=== PATIENT | male | born 1955 | race Two or more races ===

== ENCOUNTER 2017-05-14 07:00 | Inpatient (IN) | payer OTHER ==
[~2017-05-14] VITALS: Ht 180.3 cm; Wt 106.6 kg
[~2017-05-14 07:00] MED LIST: BENAZEPRIL HCL10 MG ORAL; Dexamethasone 20mg/5ml IVP ONE; ceFAZolin sod 1 GM in NS 55 ML IVPB ONE
[2017-07-09] VITALS (17 sets, daily range): BP systolic 111–140; BP diastolic 65–81
[2017-07-09] MEDS ORDERED: LR 1000ml 1,000 ML IVLG SCH (06:09)
--- NOTE | 2017-07-09 06:14 | Anethesia Preoperative Eval ---
Anesthesia Pre-op PMH/ROS General Date of Evaluation: Jul 09, 2017 Time of Evaluation: 07:16 Anesthesiologist: Darshana ASA Score: ASA 3 Mallampati Score Class I : Soft palate, uvula, fauces, pillars visible Class II: Soft palate, uvula, fauces visible Class III: Soft palate, base of uvula visible Class IV: Only hard plate visible Mallampati Classification: Class II Surgeon: Ana Paula Diagnosis: Back Pain Surgical Procedure: ALIF L4-5, L5-S1, PSF L4-5,L5-S1 Anesthesia History: none Family History: no anesthesia problems Allergies: Coded Allergies: No Known Allergies (Unverified , 05/13/17) Medications: see eMAR Past Medical History Cardiovascular: Reports: HTN Other: obesity - BMI 35 PSxH Narrative: L Knee Arthroscopy Anesthesia Pre-op Phys. Exam Physician Exam Constitutional: NAD Neurologic: CN 2-12 intact Cardiovascular: RRR Respiratory: CTA Gastrointestinal: S/NT/ND Airway Exam Mallampati Score: Class II MO: full ROM: limited Teeth: intact Anesthesia Pre-op A/P Risk Assessment & Plan Assessment: ASA 3 Plan: GA, BIS, Glidescope Status Change Before Surgery: No Pre-Antibiotics Dru Grams Ancef IV Given Within 1 Hr of Incision: Yes Time Given: 07:31 Arturo Gilliland MD Jul 09, 2017 06:14
[2017-07-09] MEDS ORDERED: LORazepam Inj 2mg/ml 1ml IV PRN (06:15)
[2017-07-09] MEDS ORDERED: HYDROcodone/Acetamin 7.5/325 tab ORAL PRN ×2 (06:15→14:30)
[2017-07-09] MEDS ORDERED: Labetalol 5mg/ml 20ml vial IV PRN (06:15)
[2017-07-09] MEDS ORDERED: Midazolam 2mg/2ml Inj IVP PRN (06:15)
[2017-07-09] MEDS ORDERED: Ketorolac 30mg Inj IV PRN ×2 (06:15→14:30)
[2017-07-09] MEDS ORDERED: Ketorolac 60mg Inj IV PRN ×2 (06:15→14:30)
[2017-07-09] MEDS ORDERED: oxyCODONE HCL/Acetaminophen 5/325mg ORAL PRN ×2 (06:15→14:30)
[2017-07-09] MEDS ORDERED: Atropine Inj 1mg/10ml Syr IV PRN (06:15)
[2017-07-09] MEDS ORDERED: fentaNYL 100 mcg/2 mL IV PRN (06:15)
[2017-07-09] MEDS ORDERED: DiphenhydrAMINE 50mg/ml Inj IVP PRN (06:15)
[2017-07-09] MEDS ORDERED: Norco 5mg/325mg tab ORAL PRN ×2 (06:15→14:30)
[2017-07-09] MEDS ORDERED: Surgicel 4in x 8in TOPIC ONE (06:33)
[2017-07-09] MEDS ORDERED: Thrombin 5000 units TOPIC ONE ×2 (06:33→13:43)
[2017-07-09] MEDS ORDERED: Ropivacaine 5mg/ml Vial 30ml INJ ONE (06:34)
[2017-07-09] MEDS ORDERED: Vancomycin 1gm inj IVPB ONE (06:34)
[2017-07-09] MEDS ORDERED: Lidocaine 1% Plain 30 ml INJ ONE ×2 (06:34→07:00)
[2017-07-09] MEDS ORDERED: Bacitracin 50000 Units Vial ONE (06:34)
[2017-07-09] MEDS ORDERED: Lidocaine 1% 10mg/ml/EPI 0.01mg/ml 50ml INJ ONE (06:34)
--- NOTE | 2017-07-09 06:46 | Immediate Post-Op Evaluation ---
Immediate Post-Op Evalulation Immediate Post-Op Evalulation Procedure: ALIF L4-5, L5-S1, PSF L4-5,L5-S1 Date of Evaluation: Jul 09, 2017 Time of Evaluation: 13:54 IV Fluids: 1800 LR Blood Products: 0 Estimated Blood Loss: 100 Urinary Output: 200 Blood Pressure Systolic: 128 Blood Pressure Diastolic: 88 Pulse Rate: 80 Respiratory Rate: 16 O2 Sat by Pulse Oximetry: 98 Temperature (Fahrenheit): 97 Pain Score (1-10): 3 Nausea: No Vomiting: No Complications 0 Patient Status: awake, reacts, patent, extubated, none Hydration Status: adequate Dru Grams Ancef IV Given Within 1 Hr of Incision: Yes Time Given: 07:31 Arturo Gilliland MD Jul 09, 2017 06:46
[2017-07-09] MEDS ORDERED: Dexamethasone 20mg/5ml IVP ONE (07:00)
[2017-07-09] MEDS ORDERED: PCA HYDROmorphone 1mg/ml 30 ML IV PRN (07:00)
[2017-07-09] MEDS ORDERED: Chloraseptic Spray 20mL Bottle ORAL PRN (07:00)
[2017-07-09] MEDS ORDERED: LR 1000ml ONE (07:00)
[2017-07-09] MEDS ORDERED: Propofol 1,000mg/ 100ml btl IV ONE (07:00)
[2017-07-09] MEDS ORDERED: fentaNYL 100 mcg/2 mL IV ONE (07:00)
[2017-07-09] MEDS ORDERED: Glycopyrrolate 0.2mg/ml 1ml Vial ONE (07:00)
[2017-07-09] MEDS ORDERED: NS Irrig 1000ml ONE (07:00)
[2017-07-09] MEDS ORDERED: Acetaminophen (Non formulary) 100 ML IV ONE (07:00)
[2017-07-09] MEDS ORDERED: Sterile Water Irrig 1000ml IRRIG ONE (07:00)
[2017-07-09] MEDS ORDERED: Zemuron 50mg/5ml Inj IV ONE (07:00)
[2017-07-09] MEDS ORDERED: Neostigmine 1mg/ml 10ml Inj ONE ×2 (07:00)
[2017-07-09] MEDS ORDERED: LORazepam 0.5mg tab ORAL PRN (07:00)
[2017-07-09] MEDS ORDERED: Sodium Chloride 10ml vial INJ ONE (07:00)
[2017-07-09] MEDS ORDERED: oxyCODONE 5mg IR tab ORAL PRN ×2 (07:00)
[2017-07-09] MEDS ORDERED: Propofol 200mg/20ml IV ONE (07:00)
[2017-07-09] MEDS ORDERED: Lidocaine 1% MPF 10mg/ml 5ml ONE (07:00)
[2017-07-09] MEDS ORDERED: ceFAZolin sod 1 GM in D5W 55 ML IVPB ONE (07:00)
[2017-07-09] MEDS ORDERED: Heparin 5000 units/ml inj ONE (07:02)
--- NOTE | 2017-07-09 07:21 | Pre-Procedure Note/Attestation ---
Pre-Procedure Note/Attestation Complete Prior to Procedure Planned Procedure: not applicable Procedure Narrative: ALIF L4-5, L5-S1 Pedicle Screw instrumentation / fusion posterior L4=5=S1 Indications for Procedure Pre-Operative Diagnosis: Post trauma back pain, instability Attestation I attest that I discussed the nature of the procedure; its benefits; risks and complications; and alternatives (and the risks and benefits of such alternatives ), prior to the procedure, with the patient (or the patient's legal sales representative printing paper). I attest that, if there was a reasonable possibility of needing a blood transfusion, the patient (or the patient's legal sales representative printing paper) was given the [place] [employer] standardized written summary, pursuant to the Man[place] Blood Safety Act ([place] Health and Safety Code # 1645, as amended). I attest that I re-evaluated the patient just prior to the surgery and that there has been no change in the patient's H&P, except as documented below: LORIE ARNOLD Jul 09, 2017 07:21
[2017-07-09] MEDS ORDERED: Naloxone 0.4mg/ml Inj IVP PRN (11:45)
--- NOTE | 2017-07-09 13:00 | Brief Operative Note ---
Immediate Post Operative Note Operative Note Pre-op Diagnosis: Post trauma back pain, instability Procedure: ALIF L4-5, L5-S1 Body Habitus reconstruction, internal fixation, correction deformity, x ray ssep, bmp microscopic disection Posterior Body Habitus local, ssep, xray, local Surgeon: Anterior: Ana Paula Sharpe Pricing Actuary: Kwasi mendoza Anesthesiologist: Darshana COLUNGA Anesthesia: general Specimen: none Complications: none Condition: stable Fluids: anesthesia Estimated Blood Loss: minimal Drains: none Implant(s) used?: Yes LORIE ARNOLD Jul 09, 2017 13:00
--- NOTE | 2017-07-09 13:26 | 48 Hour Post Anesthesia Eval ---
Post Anesthesia Evaluation Procedure: ALIF L4-5, L5-S1, PSF L4-5,L5-S1 Date of Evaluation: Jul 11, 2017 Time of Evaluation: 09:00 Blood Pressure Systolic: 147 0: 63 Pulse Rate: 82 Respiratory Rate: 17 Temperature (Fahrenheit): 98 O2 Sat by Pulse Oximetry: 99 Airway: patent Nausea: No Vomiting: No Pain Intensity: 0 Hydration Status: adequate Mental Status/LOC: patient returned to baseline Post-Anesthesia Complications: none Follow-up care needed: patient intructions given Brandon Rosales M.D. Jul 09, 2017 13:26
[2017-07-09] MEDS ORDERED: PCA HYDROmorphone 1mg/ml 30 ML IV ONE (14:20)
[2017-07-09] MEDS: PCA HYDROmorphone 1mg/ml 30 ML IV PRN (14:29)
[2017-07-09] MEDS: Hydromorphone 0.5mg/0.5ml inj IVP PRN ×3 (14:34→15:34)
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
[2017-07-09] MEDS: D5 1/2NS 1,000 ML IV SCH ×2 (16:55→23:51)
--- NOTE | 2017-07-09 17:45 | Operative Note - Dictated ---
DATE OF OPERATION: 07/09/2017 ADMITTING/PREOPERATIVE DIAGNOSIS: Posttraumatic discogenic back pain. POSTOPERATIVE DIAGNOSIS: Posttraumatic discogenic back pain. CO-SURGEONS: 1. L5-S1 fusion, Robbie Sharpe M.D., Vascular Surgery. 2. Dragan Goss M.D., assist on exposure. Anterior also Dr. Dragan Goss, orthopedic spine. 3. Posterior, BOONE Mccann. ANESTHESIOLOGIST: Arturo Gilliland M.D. ANESTHESIA: General with intubation. ESTIMATED BLOOD LOSS: 50 mL. COMPLICATIONS: None. POSTOPERATIVE CONDITION: Good/stable. OPERATIVE PROCEDURES: 1. The patient's body habitus is greater than 95th percentile for height both for the anterior and posterior surgeries that are performed separately with change of instrumentation used for the surgeries anterior versus posterior as well as operating tables. 2. Anterior interbody reconstruction fusion with correction of kyphosis to lordosis. 3. L4-L5 and L5-S1 internal fixation. 4. Bone morphogenic protein placement. 5. Posterior pedicle screw instrumentation, bilateral L4, S1. 6. SSEP monitoring. 7. High-powered microscopic dissection. 8. Intraoperative x-rays interpreted by surgeon. 9. Local anesthetic applied by surgeon. DESCRIPTION OF PROCEDURE: The patient was brought to the operating room and in the supine position, general anesthesia with intubation was induced. Intravenous antibiotics and intravenous Decadron were administered 30 minutes prior to incision time. Anterior longitudinal incision through a sterile field was sharply placed through dermis and epidermis. Please see separate dictation by Dr. Sharpe. L5-S1 midline and correct level was identified with needle placed in the disc space and AP and lateral radiographs obtained and interpreted by surgeon under sterile conditions. Annulotomy performed followed with diskectomy to the posterior longitudinal ligament. Denuding of the endplates to bleeding bone. Interpositional grafting with the appropriate lordotic cage Bailey titanium/PEEK containing bone morphogenic protein. Excellent position/alignment. Internal fixation. Attention was turned to the L4-L5 interval. Large anterior osteophytes. Asymmetric right requiring extensive additional exposure time. Resection. Annulotomy followed with diskectomy. Endplate denuded of cartilaginous endplates to bleeding bone. Interpositional grafting with the appropriately dimensioned lordotic cage titanium/PEEK containing bone morphogenic protein. trial utilization and fluoroscopic guidance. Appropriate interbody device placed. Internal fixation undertaken. L4-L5 and L5-S1 intervertebral spacers were incorporated in the fibrin glue. Wound irrigated with antibiotic-containing saline. Closure by Dr. Sharpe, please see his note. Sterile bandage applied. The patient was carefully turned to a new operating table to the prone position. All new instrumentation was utilized to dissect from posterior approach. Lumbodorsal spine was sterilely prepped and draped free in usual sterile fashion. Spinal needles were placed into the subcutaneous tissue and cross-table imaging was obtained under sterile conditions, interpreted by surgeon for incision placement determination. Position of the needles marked. Coleman removed. Longitudinal midline incision sharply placed in the dermis and epidermis. Electrocautery dissection carried through extensive subcutaneous tissue to the level of the lumbodorsal fascia. We will see approach applied on bilateral and lateral aspects through the lumbodorsal fascia and paraspinal muscles. Position confirmed with fluoroscopic guidance and markers. Pedicle screw instrumentation undertaken bilaterally at L4 bilaterally S1 with sequential drilling of the dorsal cortex, probing of the pedicle, tapping, determination of cortical wall integrity. No EMGs at any time. Placement of screws of the appropriate length followed with electrical stimulation to 10 milliamps negative. Wound irrigated with antibiotic-containing saline. Interconnecting rods torqued into position. Re-irrigation undertaken. Facet fusions were undertaken with local bone graft utilization at L4-L5 and L5-S1. HemoSeal applied followed with 1 g vancomycin powder each side (2 g total). Reapproximation of lumbodorsal fascia. Sequential reapproximation of subcutaneous tissue, dermis, and epidermis. Surgical strips applied. Sterile bandage applied. Local anesthetic applied at the dermis/subcutaneous interval on bilateral and lateral aspects of the incision. Sterile bandage applied and maintained in place with tape. The patient was carefully turned from the prone to supine position on the transport bed where he was awakened and extubated in the operating room and transported to postop recovery in good stable condition. Dragan Goss M.D. DR: WOLFGANG JOB#: [id number] CC:
[2017-07-09] MEDS: PCA shift volume MISC SCH (19:21)
[2017-07-09] MEDS: ceFAZolin sod 1 GM in NS 55 ML IVP SCH (21:21)
--- NOTE | 2017-07-09 21:45 | Operative Note - Dictated ---
DATE OF OPERATION: 07/09/2017 VASCULAR SURGEON: Robbie Sharpe M.D. SPINE SURGEON: Dragan Goss M.D. PREOPERATIVE DIAGNOSIS: Degenerative disk disease. POSTOPERATIVE DIAGNOSIS: Degenerative disk disease. PROCEDURES PERFORMED: 1. Anterior retroperitoneal exposure of L4-L5 vertebral interspace. 2. Anterior retroperitoneal exposure of L5-S1 vertebral interspace. INDICATIONS: The patient is a very pleasant gentleman who is in my office prior to surgery and scheduled for anterior fusion L4-L5 and L5-S1. He has a history of deep vein thrombosis. No history of prior surgery. No history of bleeding were described. He has been made aware of the risks of surgery including vascular injury, possible blood transfusion, deep venous thrombosis. DESCRIPTION OF FINDINGS: A low vertical midline incision was used. A left retroperitoneal approach was used. There was no peritoneal or ureteral violation. There was a preoperatively recognize osteophyte on the anterior surface of L4-L5, however, we were able to mobilize the left iliac vessels over this osteophyte without vascular injury. Exposure of L5-S1 was obtained below the iliac bifurcation and exposure of L4-L5 was obtained above the iliac bifurcation. Fluoroscopy used to confirm both levels prior to instrumentation. On completion, the peritoneum and ureter intact. Iliac vessels are intact. There are palpable femoral and pedal pulses. BLOOD LOSS: Less than 50 mL. DESCRIPTION OF PROCEDURE: The patient was taken to the operative room. General anesthesia was used. IV antibiotics were given. The patient's abdomen was prepped and draped. Appropriate time-out procedures were taken. A vertical midline incision was made infraumbilically. The anterior fascia was incised longitudinally in the midline. A plane was identified posterior to the left rectus abdominis and developed posterolaterally towards the patient's left. The peritoneum and uterus mobilized towards the patient's right, exposing the left common iliac artery and vein. Initial dissection was carried on the undersurface of the left common iliac vein and middle sacral artery and vein were ligated with vascular clips and divided, this allowed us to retract the left iliac artery and vein superiorly and laterally exposing the anterior surface of the L5-S1. The Omni retractor set in place. Fluoroscopy was then used to confirm the appropriate level. Then instrumentation was performed at L5-S1, dictated separately. The retractor then repositioned above the iliac bifurcation, overlying lymphatics were ligated with vascular clips. The iliolumbar vein was identified and encircled using a 2-0 silk tie and then triply ligated proximally and distally with vascular clips. The allowed us to retract the left common iliac artery and vein towards the patient's right. There is a large osteophyte found on the anterior surface of L4-L5, mostly in the left side. This was seen preoperatively on CT. The left iliac vessels were carefully mobilized over this and were able to get exposure of the disk space and extending all the way to the right. At this time, fluoroscopy used to confirm the appropriate level and instrumentation was performed at L4-L5 dictated separately. On completion, the retractor was gently removed. The peritoneum and ureter intact. Iliac vessels are intact. Anterior fascia was then closed using #1 PDS in running fashion. Skin and subcutaneous tissue closed with 3-0 Vicryl and 4-0 Monocryl running subcuticular closure technique. Estimated blood loss 50 mL. Complications none. Robbie Sharpe M.D. DR: SYMONE JOB#: [id number] CC: Jack Boggs M.D. ; FAX#: [phone]
[2017-07-09] MEDS ORDERED: ceFAZolin 1gm/50ml Premix 50 ML IV SCH (22:00)
[2017-07-10] VITALS: BP 103/57
[2017-07-10 04:48] VITALS: BP 103/59
[2017-07-10] MEDS: ceFAZolin sod 1 GM in NS 55 ML IVP SCH ×3 (04:57→21:16)
[2017-07-10] MEDS: PCA shift volume MISC SCH ×2 (07:00→19:28)
[2017-07-10 08:00] VITALS: BP 106/62
[2017-07-10] MEDS ORDERED: Chloraseptic Spray 20mL Bottle ORAL ONE (09:00)
[2017-07-10] MEDS: Docusate 100mg cap ORAL SCH ×2 (09:23→17:55)
[2017-07-10] MEDS: D5 1/2NS 1,000 ML IV SCH ×2 (09:24→17:55)
[2017-07-10] MEDS ORDERED: TransDerm Scop 1mg/72HR Patch TDERMAL ONE (10:00)
[2017-07-10] MEDS ORDERED: oxyCODONE 5mg IR tab ORAL PRN (10:00)
[2017-07-10] MEDS: Morphine Sulfate 4mg/ml Inj IM PRN ×2 (11:40→19:14)
[2017-07-10 12:00] VITALS: BP 110/64
[2017-07-10] MEDS ORDERED: Chloraseptic Spray 20mL Bottle ORAL PRN (12:00)
[2017-07-10] MEDS: HYDROmorphone 1mg/ml Carpuject SUBQ PRN (12:50)
[2017-07-10] MEDS: PCA HYDROmorphone 1mg/ml 30 ML IV PRN (12:51)
--- NOTE | 2017-07-10 15:00 | Cardiology Progress Note ---
Assessment/Plan Assessment/Plan nausea and afvomittign responed to scopolamin patch he feel comfortable pain mamangment per dr pierce dvt ppx ambulate awiat resumption of joel fucntion and po intak to allo dc home [id number] Objective Last 24 Hour Vital Signs Date Time Temp Pulse Resp B/P (MAP) Pulse Ox O2 Delivery O2 Flow Rate FiO2 07/10/17 12:10 98.9 07/10/17 12:00 98.9 73 19 110/64 96 07/10/17 08:00 98.9 67 19 106/62 98 07/10/17 04:48 98.4 60 20 103/59 97 07/10/17 03:27 18 07/10/17 00:00 98.4 61 20 103/57 95 07/09/17 23:39 19 07/09/17 20:17 97.9 61 19 117/65 93 07/09/17 19:37 18 07/09/17 18:10 97.8 07/09/17 18:10 97.8 07/09/17 17:15 98.0 88 18 131/80 97 Nasal Cannula 3.0 07/09/17 16:15 18 07/09/17 16:15 97.8 87 18 131/81 97 Nasal Cannula 3.0 07/09/17 16:14 20 07/09/17 15:59 20 07/09/17 15:44 20 07/09/17 15:42 97.6 56 18 111/68 96 Nasal Cannula 3.0 07/09/17 15:41 97.6 57 18 118/75 96 Nasal Cannula 3.0 07/09/17 15:34 62 18 120/72 96 Nasal Cannula 3.0 07/09/17 15:29 63 18 118/70 96 Nasal Cannula 3.0 07/09/17 15:26 97.0 07/09/17 15:15 67 18 118/72 98 Nasal Cannula 3.0 07/09/17 15:15 20 07/09/17 15:00 20 07/09/17 14:58 66 18 120/73 98 Nasal Cannula 3.0 Intake and Output 07/09/17 07/10/17 19:00 07:00 Intake Total 2225 ml 1125 ml Output Total 950 ml 500 ml Balance 1275 ml 625 ml Intake IV Total 2225 ml 1125 ml Output Urine Total 850 ml 500 ml Estimated Blood Loss 100 ml # Voids 1 BESSY MUSE Jul 10, 2017 15:00
[2017-07-10 16:00] VITALS: BP 109/63
--- NOTE | 2017-07-10 17:45 | Progress Note ---
DATE: 07/10/2017 ACUTE PAIN MANAGEMENT PHYSICIAN PROGRESS NOTE. MEDICATIONS: Medication administration record reviewed. Medications include Chloraseptic, Protonix, oxycodone, Zofran, Ativan, Dilaudid, Colace, Benadryl, Catapres, Soma, Mylanta, Fioricet, Tylenol. LABORATORY STUDIES: No interval laboratory studies. OBJECTIVE: VITAL SIGNS: Afebrile, pulse 57, respirations 18, blood pressure 106/62, and oxygen saturation 98%. I spent over sixty minutes in consultation today. I saw the patient at bedside with the nurse RN, Nasiam. I spoke with the hospital pharmacist. The patient has had severe nausea throughout the night. It is unclear if the nausea is due to the surgery or possibly due to the Dilaudid MASK DESIGNER, which he has been using in moderate doses. I spoke with the pharmacy and the nurse to trial the patient on intramuscular dose of Phenergan now. I also will apply scopolamine patch, as the patient denies any glaucoma symptoms. I would recommend to trial the patient on intramuscular morphine injections alternated with the oral oxycodone. If the pain control is adequate on these two agents, then we can hold off on further usage of the MASK DESIGNER Dilaudid, in case Dilaudid is causing nausea. If the patient's pain is inadequately treated using q.3 h. dosing of intramuscular morphine then perhaps subcutaneous Dilaudid usage might have less nausea effects. The patient was trialed on Compazine, which was ineffective. The patient also was trialed on multiple doses of Zofran, which also did not seem to help with the nausea complaints. The patient is having considerable heartburn symptoms as well. I will order a 12-lead EKG. To be certain, the nausea symptoms are not due to ischemic heart disease and will forward this information to gallery or museum curator, Dr. Choi. The patient denies any shortness of breath or chest pain. He already is on Protonix for GI ulcer prophylaxis and I have asked the nurse to dose him with Mylanta as well in case there are any heartburn symptoms. Incentive spirometer is at the bedside for good pulmonary toilet. Sequential compression pneumatic devices have been ordered for DVT prophylaxis. After his anterior approach surgery, the patient still has no bowel sounds. He will continue NPO except for medications until there is better rastafarian of bowel function. The patient will begin ambulating with physical therapy later today. Brandon Varela M.D. DR: Matteo JOB#: [id number] CC:
[2017-07-10 20:00] VITALS: BP 119/69
[2017-07-11 00:05] VITALS: BP 114/65
[2017-07-11] MEDS: D5 1/2NS 1,000 ML IV SCH ×3 (00:08→15:59)
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
[2017-07-11 04:00] VITALS: BP 125/74
[2017-07-11] MEDS: ceFAZolin sod 1 GM in NS 55 ML IVP SCH ×3 (05:01→21:31)
[2017-07-11] MEDS: PCA shift volume MISC SCH (07:00)
[2017-07-11 08:00] VITALS: BP 114/65
[2017-07-11] MEDS: Docusate 100mg cap ORAL SCH ×2 (08:23→17:36)
[2017-07-11 12:00] VITALS: BP 141/72
[2017-07-11] MEDS: HYDROmorphone 1mg/ml Carpuject SUBQ PRN (13:42)
[2017-07-11 16:00] VITALS: BP 142/76
--- NOTE | 2017-07-11 16:19 | Cardiology Progress Note ---
Assessment/Plan Assessment/Plan 1. Obesity. 2. Lumbar spine injury. 3. Nonalcoholic steatohepatitis. 4. Abnormal liver function test, secondary to above. 5. low grade fever watch temp curve foey removed not yet urinated will have staff check pvr will give flomax to hel with urination if unable to do so may need in / out cath if failes to urinate dvt ppx ambulate not yet hat any flatus or bm so is not being allowed to eat lasb in am may need cx if has fever IS use Subjective Cardiovascular: Denies: chest pain, lightheadedness, palpitations Respiratory: Denies: shortness of breath Gastrointestinal/Abdominal: Denies: abdominal pain Genitourinary: Denies: burning Subjective galeano removed not yet urintaed no bm no flatus back pain when tired to walk Objective Last 24 Hour Vital Signs Date Time Temp Pulse Resp B/P (MAP) Pulse Ox O2 Delivery O2 Flow Rate FiO2 07/11/17 12:00 98.3 72 18 141/72 95 Room Air 07/11/17 12:00 18 07/11/17 08:00 98.0 61 18 114/65 91 Room Air 07/11/17 08:00 18 07/11/17 06:06 98.4 07/11/17 05:54 98.4 07/11/17 04:55 100.6 07/11/17 04:06 18 07/11/17 04:00 100.1 71 18 125/74 93 Room Air 07/11/17 00:30 98.5 07/11/17 00:15 100.4 07/11/17 00:05 101.1 75 16 114/65 93 Room Air 07/11/17 00:00 18 07/10/17 21:30 97.4 07/10/17 20:31 100.1 07/10/17 20:00 18 07/10/17 20:00 100.8 73 18 119/69 94 Room Air General Appearance: no apparent distress, alert Neck: supple Cardiovascular: normal rate, regular rhythm Respiratory/Chest: lungs clear, normal breath sounds Abdomen: non tender, soft, hypoactive bowel sounds, other - anter dressign in palce min draingwe on eh loer endof brittany dressing Extremities: no swelling, other - penumoatic stockign in palce Intake and Output 07/10/17 07/11/17 19:00 07:00 Intake Total 2753 ml 1250 ml Output Total 2400 ml 600 ml Balance 353 ml 650 ml Intake IV Total 2753 ml 1250 ml Output Urine Total 2400 ml 600 ml # Voids 3 Microbiology Date/Time Source Procedure Growth Status 07/09/17 06:25 Nasal Nares MRSA Culture - Final NO METHICILLIN RESISTANT STAPH AUREUS... Complete BESSY MUSE Jul 11, 2017 16:19
[2017-07-11] MEDS ORDERED: D5 1/2NS 1000ml IV ONE (16:28)
[2017-07-11] MEDS ORDERED: Tubing IV Secondary IV ONE (16:28)
--- NOTE | 2017-07-11 16:33 | Progress Note ---
DATE: 07/11/2017 ACUTE PAIN MANAGEMENT PHYSICIAN PROGRESS NOTE MEDICATIONS: Medication administration record reviewed. Medications include IV fluids, Colace, Protonix, Dilaudid TILE HELPER, and antibiotics. P.r.n. medications include Benadryl, Dilaudid, Narcan, Zofran, Catapres, Ativan, Soma, Tylenol, Fioricet, morphine, oxycodone, Chloraseptic, Phenergan, Mylanta, and Dilaudid TILE HELPER. LABORATORY STUDIES: No interval laboratory studies. OBJECTIVE: VITAL SIGNS: Intermittent fevers with a T-max of 100.6 three hours ago. Currently, the patient is afebrile. Pulse 71, respirations 18, blood pressure 125/74, and oxygen saturation 93% on room air. I spent over 60 minutes in consultation today. I saw the patient at the bedside. I discussed the case with demand manager, Dr. Choi. Dr. Choi has reviewed the patient's symptoms and did not believe there was any cardiogenic etiology. EKG was performed, which showed normal sinus rhythm, no evidence for acute cardiac ischemia. Yesterday, the patient was having severe nausea. He was unclear of the etiology. It was considered possible the Dilaudid as a culprit. However, after application of the scopolamine patch and dosing the patient with intramuscular Phenergan, the nausea symptoms subsided. The patient has been continuing to use his Dilaudid TILE HELPER unit without any adverse side effects or nausea over the past 12 hours. He used 4 mg over the past nightshift. I would continue the TILE HELPER until lunch time today. After that I would discontinue the TILE HELPER and switch the patient over to p.r.n. medications, which include intramuscular morphine, subcutaneous Dilaudid, and oral oxycodone. All three of these agents have been tolerated well in the past and the p.r.n. morphine and p.r.n. Dilaudid have already been dosed yesterday without adverse side effects and with good analgesic effect. The patient has been ambulating with physical therapy. With his intermittent fevers, I would encourage more aggressive and frequent ambulation along with much more aggressive use of incentive spirometer. Sequential compression pneumatic devices will remain in place for DVT prophylaxis. After the anterior approach surgery, the patient still has not yet passed positive flatus. He does have positive bowel sounds and we will wait for improved and return of better bowel function prior to advancing his diet. He had a Alejandre catheter remains in place and I will defer removal of the Alejandre to the surgical team at this time. The patient already has a supply of oxycodone at home and the patient does have family at the bedside providing good social support. Brandon Varela M.D. DR: DAYRON JOB#: [id number] CC:
[2017-07-11] MEDS: Morphine Sulfate 4mg/ml Inj IM PRN (19:29)
[2017-07-11 20:00] VITALS: BP 143/77
[2017-07-12] MEDS: D5 1/2NS 1,000 ML IV SCH ×5 (00:30→20:00)
[2017-07-12] MEDS: HYDROmorphone 1mg/ml Carpuject SUBQ PRN ×2 (00:31→07:07)
[2017-07-12 01:25] VITALS: BP 133/71
[2017-07-12 04:00] VITALS: BP 136/76
[2017-07-12] MEDS: ceFAZolin sod 1 GM in NS 55 ML IVP SCH ×3 (05:02→20:53)
[2017-07-12 06:33] LABS: BASOPHILS % (AUTO) 0.7 % (0.0-2.0); EOSINOPHILS % (AUTO) 0.5 % (0.0-3.0); HEMATOCRIT 40.8 % (42.0-52.0); HEMOGLOBIN 13.7 G/DL (14.2-18.0); LYMPHOCYTES % (AUTO) 9.5 % (20.0-45.0); MEAN CORPUSCULAR VOLUME 95 FL (80-99); MONOCYTES % (AUTO) 9.6 % (1.0-10.0); NEUTROPHILS % (AUTO) 79.6 % (45.0-75.0); PLATELET COUNT 146 K/UL (150-450); RED BLOOD COUNT 4.32 M/UL (4.70-6.10); RED CELL DISTRIBUTION WIDTH 11.2 % (11.6-14.8); WHITE BLOOD COUNT 14.5 K/UL (4.8-10.8)
[2017-07-12 06:44] LABS: ANION GAP 7 mmol/L (5-15); BLOOD UREA NITROGEN 11 mg/dL (7-18); CALCIUM 8.2 MG/DL (8.5-10.1); CARBON DIOXIDE 28 MMOL/L (21-32); CHLORIDE 102 MMOL/L (98-107); CREATININE 0.8 MG/DL (0.55-1.30); POTASSIUM 4.3 MMOL/L (3.5-5.1); SODIUM 137 MMOL/L (136-145)
[2017-07-12 08:00] VITALS: BP 124/71
[2017-07-12] MEDS: Docusate 100mg cap ORAL SCH ×2 (09:00→18:22)
[2017-07-12 12:00] VITALS: BP 139/73
[2017-07-12 16:00] VITALS: BP 138/80
[2017-07-12] MEDS ORDERED: oxyCODONE 5mg IR tab ORAL PRN (19:15)
[2017-07-12 20:35] VITALS: BP 144/77
--- NOTE | 2017-07-12 20:54 | Cardiology Progress Note ---
Assessment/Plan Assessment/Plan 1. Obesity. 2. Lumbar spine injury. 3. Nonalcoholic steatohepatitis. 4. Abnormal liver function test, secondary to above. 5. low grade fever no fever labs noted dvt ppx ambulate not yet had bm but had flauts clear liquid order by dr santillan dressing clear and dry both ant and post IS use may need cathartic to help bm Subjective ROS Limited/Unobtainable: No Cardiovascular: Denies: chest pain, lightheadedness Respiratory: Denies: shortness of breath Gastrointestinal/Abdominal: Reports: abdominal pain Genitourinary: Denies: burning Subjective walked several time had flatus no bm Objective Last 24 Hour Vital Signs Date Time Temp Pulse Resp B/P (MAP) Pulse Ox O2 Delivery O2 Flow Rate FiO2 07/12/17 20:35 98.0 72 18 144/77 95 07/12/17 16:00 97.9 76 18 138/80 95 Room Air 07/12/17 12:00 98.5 77 18 139/73 94 Room Air 07/12/17 08:00 98.2 68 18 124/71 94 Room Air 07/12/17 04:00 98.5 73 18 136/76 97 Room Air 07/12/17 02:15 97.0 07/12/17 01:25 100.3 74 18 133/71 97 Room Air General Appearance: no apparent distress, alert Neck: supple Cardiovascular: normal rate, regular rhythm Respiratory/Chest: lungs clear Abdomen: non tender, soft, hypoactive bowel sounds Extremities: no swelling Intake and Output 07/11/17 07/12/17 19:00 07:00 Intake Total 680 ml 1500 ml Output Total 920 ml Balance 680 ml 580 ml Intake IV Total 680 ml 1500 ml Output Urine Total 920 ml Laboratory Tests Test 07/12/17 06:15 White Blood Count 14.5 K/UL (4.8-10.8) H Red Blood Count 4.32 M/UL (4.70-6.10) L Hemoglobin 13.7 G/DL (14.2-18.0) L Hematocrit 40.8 % (42.0-52.0) L Mean Corpuscular Volume 95 FL (80-99) Mean Corpuscular Hemoglobin 31.8 PG (27.0-31.0) H Mean Corpuscular Hemoglobin Concent 33.6 G/DL (32.0-36.0) Red Cell Distribution Width 11.2 % (11.6-14.8) L Platelet Count 146 K/UL (150-450) L Mean Platelet Volume 10.7 FL (6.5-10.1) H Neutrophils (%) (Auto) 79.6 % (45.0-75.0) H Lymphocytes (%) (Auto) 9.5 % (20.0-45.0) L Monocytes (%) (Auto) 9.6 % (1.0-10.0) Eosinophils (%) (Auto) 0.5 % (0.0-3.0) Basophils (%) (Auto) 0.7 % (0.0-2.0) Sodium Level 137 MMOL/L (136-145) Potassium Level 4.3 MMOL/L (3.5-5.1) Chloride Level 102 MMOL/L (98-107) Carbon Dioxide Level 28 MMOL/L (21-32) Anion Gap 7 mmol/L (5-15) Blood Urea Nitrogen 11 mg/dL (7-18) Creatinine 0.8 MG/DL (0.55-1.30) Estimat Glomerular Filtration Rate > 60 mL/min (>60) Glucose Level 119 MG/DL (74-106) H Calcium Level 8.2 MG/DL (8.5-10.1) BESSY LYNN Jul 12, 2017 20:54
[2017-07-12] MEDS: oxyCODONE 5mg IR tab ORAL PRN (20:58)
--- NOTE | 2017-07-12 23:00 | Progress Note ---
DATE: 07/12/2017 ACUTE PAIN MANAGEMENT PHYSICIAN PROGRESS NOTE MEDICATIONS: Include IV fluids, Colace, Protonix, Ancef, Benadryl, Dilaudid, Narcan, Zofran, Catapres, Ativan, Soma, Tylenol, Fioricet, morphine, oxycodone, Chloraseptic, Phenergan, and Mylanta. LABORATORY DATA: Laboratory studies from today 07/12/2017 shows white count of 15, hematocrit 41, and platelets 146,000. Sodium 137, potassium 4.3, chloride 103, bicarb 28, BUN 11, creatinine 0.8, glucose 119, and calcium 8.2. OBJECTIVE: VITAL SIGNS: Afebrile, pulse 76, respirations 18, blood pressure 138/80, and oxygen saturation 99% on room air. I spent over 60 minutes in consultation today. I saw the patient at the bedside. I discussed the case with the nurse RN, Aida. The patient did start passing positive flatus and the surgeon, Dr. Goss has advanced the patient to clear liquids at this time. The patient has been tolerating his pain off the DEPLOYMENT MANAGER unit, which I stopped at noon yesterday. He has been using breakthrough doses of subcutaneous Dilaudid and morphine. He does have p.r.n. oral doses of Soma and oxycodone available, which I do recommend. I have lowered the oxycodone dose to 5 mg for mild pain, but I will continue the 10 mg dose for moderate pain. Now, the patient is passing gas. I will start him on b.i.d. Senokot. The Alejandre catheter was removed and the patient has been voiding urine without difficulties. Incentive spirometer is at the bedside to encourage aggressive pulmonary toilet especially with his elevated white count of 14. The patient has been ambulating well with physical therapy and aggressive ambulation will help with DVT prophylaxis as well as to help his surgical recovery. The patient does have a supply of oxycodone already at home for home usage. We will continue the patient's supportive care and await further improvement in his gastrointestinal function after his ALIF surgical procedure. I would hope that after the patient has a bowel movement, he should be able to discharge to home. Because the patient has been started on liquid diet and has been absent of any nausea symptoms for over 24 hours, I will decrease his IV fluids to 50 mL an hour. Brandon Varela M.D. DR: ZEV JOB#: [id number] CC:
[2017-07-13 00:58] VITALS: BP 139/65
[2017-07-13 04:45] VITALS: BP 140/74
[2017-07-13] MEDS: ceFAZolin sod 1 GM in NS 55 ML IVP SCH (06:07)
[2017-07-13 08:00] VITALS: BP 130/75
[2017-07-13] MEDS: Docusate 100mg cap ORAL SCH ×2 (08:35→18:47)
[2017-07-13] MEDS: Sennosides 8.6mg ORAL SCH ×2 (08:35→18:47)
[2017-07-13 12:00] VITALS: BP 133/80
--- NOTE | 2017-07-13 12:59 | Diagnostic Imaging Report ---
Indication: Low back pain, intraoperative Technique: Intraoperative images Comparison: none Findings: Intraoperative imaging demonstrates localizer needle at what is presumably L5-S1. Subsequent images document placement of disc spacers at L4-5 and L5-S1, posterior fusion hardware bridging L4 and S1 Impression: Intraoperative imaging, as described
[2017-07-13 16:00] VITALS: BP 129/84
--- NOTE | 2017-07-13 18:18 | Cardiology Progress Note ---
Assessment/Plan Assessment/Plan 1. Obesity. 2. Lumbar spine injury. 3. Nonalcoholic steatohepatitis. 4. Abnormal liver function test, secondary to above. 5. low grade fever no fever dvt ppx ambulate not yet had bm but had flauts today as well clear liquid order by dr abdul dressing clear and dry both ant and post IS use may need cathartic to help bm home soon if has bm and is able tolerate food Subjective Cardiovascular: Denies: chest pain, irregular heart rate, lightheadedness, palpitations Respiratory: Denies: shortness of breath Gastrointestinal/Abdominal: Denies: abdominal pain Genitourinary: Denies: burning Subjective walked several time had flatus no bm Objective Last 24 Hour Vital Signs Date Time Temp Pulse Resp B/P (MAP) Pulse Ox O2 Delivery O2 Flow Rate FiO2 07/13/17 16:00 97.0 79 20 129/84 99 Room Air 07/13/17 12:00 98.8 88 18 133/80 95 Room Air 07/13/17 08:00 97.9 84 18 130/75 94 Room Air 07/13/17 04:45 98.3 80 18 140/74 95 07/13/17 00:59 Room Air 07/13/17 00:58 97.7 80 20 139/65 95 07/12/17 20:36 Room Air 07/12/17 20:35 98.0 72 18 144/77 95 General Appearance: no apparent distress, alert Neck: supple Cardiovascular: normal rate, regular rhythm Respiratory/Chest: lungs clear, normal breath sounds Abdomen: normal bowel sounds, non tender, soft Extremities: non-tender, no swelling Intake and Output 07/12/17 07/13/17 19:00 07:00 Intake Total 915 ml Balance 915 ml Intake Oral 360 ml IV Total 555 ml # Voids 4 BESSY MUSE Jul 13, 2017 18:18
[2017-07-13] MEDS ORDERED: oxyCODONE 5mg IR tab ORAL ONE (19:30)
[2017-07-13 20:00] VITALS: BP 148/75
[2017-07-14 00:55] VITALS: BP 141/69
[2017-07-14 04:31] VITALS: BP 122/68
[2017-07-14] MEDS: oxyCODONE 5mg IR tab ORAL PRN ×2 (06:53→16:23)
[2017-07-14] MEDS: Docusate 100mg cap ORAL SCH ×2 (08:46→17:21)
[2017-07-14] MEDS: Sennosides 8.6mg ORAL SCH (08:47)
[2017-07-14 08:55] VITALS: BP 116/66
[2017-07-14] MEDS: Magnesium Citrate Liq Btl ORAL SCH ×2 (11:47→17:22)
[2017-07-14 12:00] VITALS: BP 120/75
[2017-07-14 16:00] VITALS: BP 111/61
--- NOTE | 2017-07-14 17:00 | Progress Note ---
DATE: 07/14/2017 ACUTE PAIN MANAGEMENT PHYSICIAN PROGRESS NOTE MEDICATIONS: Medication administration record reviewed. Medications include Colace, Protonix, and Senokot. p.r.n. medications include Benadryl, Dilaudid, Narcan, Zofran, Catapres, Ativan, Soma, Tylenol, Fioricet, Chloraseptic, Phenergan, Mylanta, and oxycodone. LABORATORY STUDIES: No interval laboratory studies. VITAL SIGNS: Within normal limits, afebrile, pulse 79, respirations 20, blood pressure 120/75, and oxygen saturation 96% on room air. I spent over 60 minutes in consultation today. I saw the patient at bedside after discussion with the nurse RN, Elinor. Overnight, the patient did not have a bowel movement. I started magnesium citrate 100 mL every six hours around the clock until a bowel movement occurs and per surgeon, Dr. Goss, routine protocol postoperatively. The patient was on oral Senokot, which I will discontinue at this time since he will be taking a more aggressive dosing of magnesium citrate. Otherwise, the patient is doing very well. He is passing positive flatus and denies any abdominal bloating symptoms. He is ambulating very well. A front-wheel walker was delivered to the bedside for home usage. The patient is walking aggressively greater than 200 feet and with considerable speed. I did caution the patient not to walk too fast so to avoid slipping and falling. The patient is afebrile and has been compliant using his incentive spirometer. His diet has been advancing well without further nausea symptoms. The patient's pain seems to be well managed using oral oxycodone tablets primarily. I would expect that once the patient has a bowel movement, he will be discharged home with his per Dr. Goss recommendations. The patient should continue using incentive spirometer for good pulmonary toilet. Brandon Varela M.D. DR: BLANCHE JOB#: [id number] CC:
--- NOTE | 2017-07-14 18:03 | Cardiology Progress Note ---
Assessment/Plan Assessment/Plan 1. Obesity. 2. Lumbar spine injury. 3. Nonalcoholic steatohepatitis. 4. Abnormal liver function test, secondary to above. 5. low grade fever no fever dvt ppx ambulate not yet had bm but had flauts regualr diet now IS use got cathartic to help bm home soon if has bm and is able tolerate food Subjective Cardiovascular: Denies: chest pain, lightheadedness, palpitations Respiratory: Denies: shortness of breath, SOB with excertion Gastrointestinal/Abdominal: Reports: other - flatus no bm , Denies: abdominal pain, nausea, vomiting Genitourinary: Denies: burning Subjective walked several time had flatus no bm Objective Last 24 Hour Vital Signs Date Time Temp Pulse Resp B/P (MAP) Pulse Ox O2 Delivery O2 Flow Rate FiO2 07/14/17 16:00 Room Air 07/14/17 16:00 98.9 69 20 111/61 96 07/14/17 13:02 98.9 79 20 96 07/14/17 12:00 98.6 79 20 120/75 96 07/14/17 12:00 Room Air 07/14/17 08:55 98.6 76 20 116/66 96 07/14/17 08:00 Room Air 07/14/17 04:32 Room Air 07/14/17 04:31 98.7 81 20 122/68 97 07/14/17 00:56 Room Air 07/14/17 00:55 97.7 72 21 141/69 97 07/13/17 20:01 Room Air 07/13/17 20:00 97.2 78 20 148/75 96 General Appearance: no apparent distress, alert Neck: supple Cardiovascular: normal rate, regular rhythm Respiratory/Chest: lungs clear, normal breath sounds Abdomen: normal bowel sounds, non tender, soft, other - bs are present Intake and Output 07/13/17 07/14/17 19:00 07:00 Intake Total 600 ml 240 ml Output Total 300 ml Balance 300 ml 240 ml Intake Oral 600 ml 240 ml Output Urine Total 300 ml # Voids 1 5 BESSY MUSE Jul 14, 2017 18:03
[2017-07-14 20:00] VITALS: BP 128/77
[2017-07-15] VITALS: BP 126/76
[2017-07-15] MEDS: Magnesium Citrate Liq Btl ORAL SCH
--- NOTE | 2017-07-15 03:00 | Progress Note ---
DATE: 07/13/2017 ACUTE PAIN MANAGEMENT PHYSICIAN PROGRESS NOTE OBJECTIVE: VITAL SIGNS: Within normal limits. Afebrile. Pulse 88, respirations 18, blood pressure 133/80, and oxygen saturation 95% on room air. LABORATORY STUDIES: Laboratory studies from yesterday morning 07/12/2017 showed white count of 15, hematocrit 41, and platelets 146,000. MEDICATIONS: Medication administration record reviewed. Medications include IV fluids, Colace, Protonix, and Senokot. P.r.n. medications include Benadryl, Dilaudid, Narcan, Zofran, Catapres, Ativan, Soma, Tylenol, Fioricet, Chloraseptic spray, Phenergan, Mylanta, and Roxicodone. I spent over 60 minutes in consultation today. I saw the patient at the bedside with the nurse RN, Aida. The patient continued to advance with his gastrointestinal function. He is passing positive flatus and Dr. Goss authorized the patient to advance his diet. The nausea symptoms have abated, and the patient has been advancing his diet without difficulties. The patient continues to be rather stoic using pain medications. However, he has been alternating with the oral oxycodone at 5 mg and 10 mg dosing, with adequate analgesic effect. The patient does have a good supply already at home with oral pain medications. Since the patient is drinking adequate oral fluids intake, I will Hep-Lock the IV to encourage ambulation and movement in and out of bed. The patient is afebrile as he has been very compliant using the incentive spirometer. I have asked for the patient to receive a front wheel walker for home usage. Dr. Goss has authorized the patient to discharge home after he has a bowel movement, after the anterior approach lumbar spine fusion surgery. With the patient's good clinical symptoms and findings, with normal vital signs, I agree with Dr. Goss for discharge trial home after a bowel movement. The patient will continue advancing his diet as tolerated here in the hospital. He is on Colace and Senokot currently b.i.d. to help with bowel function and denominational to normality. Brandon Varela M.D. DR: DAYRON JOB#: [id number] CC:
[2017-07-15] MEDS: oxyCODONE 5mg IR tab ORAL PRN (03:21)
[2017-07-15 04:00] VITALS: BP 113/68
[2017-07-15] MEDS: Docusate 100mg cap ORAL SCH (08:27)
[2017-07-15 09:00] VITALS: BP 123/77
--- NOTE | 2017-07-16 12:56 | Progress Note ---
DATE: 07/15/2017 ACUTE PAIN MANAGEMENT PHYSICIAN PROGRESS NOTE OBJECTIVE: VITAL SIGNS: Afebrile, pulse 73, respirations 18, blood pressure 123/77, and oxygen saturation 97% on room air. LABORATORY STUDIES: No interval laboratory studies. MEDICATIONS: Medication administration record reviewed. Medications include Colace, Protonix, p.r.n. medications include Benadryl, Dilaudid, Narcan, Zofran, Catapres, Ativan, Soma, Tylenol, Fioricet, Chloraseptic spray, Phenergan, Mylanta, and oxycodone. I spent over sixty minutes in consultation today. I discussed the case with the charge nurse, DLIIA Yi along with the Orthopedic floor nurse, Walter. Overnight, the patient did have a bowel movement after several repeated doses of q.6 hour magnesium citrate. The patient is breathing comfortably. Denies any chest pain. The surgical dressings appear clean and dry. Since it has been one week since surgery, I have asked the nursing team to replace the dressing with fresh and dry bandages. The patient will follow up with Dr. Goss in the surgical clinic in approximately 10 days for further wound and surgical followup evaluation. The patient appears neurologically intact. His pain has been adequately controlled using the current analgesic regimen. The patient has about 40 tablets of oxycodone already at home along with a followup prescription in case of any need for refills. The patient states that his pain is adequately controlled at this time. The patient has been compliant using the incentive spirometer, which he will take home to continue good pulmonary toilet. The patient is using his front wheel walker, which he will take home with him. He is ambulating greater than 300 feet and moving in and out of bed without assistance. The patient's will also assist with activities of daily living at home. At this time, I see no contraindication for discharge trial at this time. Brandon Varela M.D. DR: GABO JOB#: [id number] CC:
--- NOTE | 2017-07-16 14:39 | Discharge Summary ---
Discharge Summary Hospital Course Date of Admission Jul 09, 2017 at 05:15 Date of Discharge Jul 15, 2017 at 10:55 Admitting Diagnosis HPI Bess Yang is a 61 year old male who was admitted on Jul 09, 2017 at 05 :15 for Instability Hospital Course [id number] Discharge Discharge Disposition Patient was discharged to Home (01) Discharge Diagnoses: Kamilah Staples NP Jul 16, 2017 14:39
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
--- NOTE | 2017-07-19 13:53 | Cardiology Report ---
APPROVED REPORT EKG Measurement Heart [id number] Sinus rhythm with premature atrial complexes with aberrant conduction Incomplete right bundle branch block Borderline ECG
== END 2017-07-15 10:55 | disposition home or self-care (01) | DRG 460 ==
LOC: SDSOVERFLO 07-09 05:15 → 3E 07-09 15:47 → UNDODISIN 07-13 16:18
PROC: 0SG00A0 Fusion of Lumbar Vertebral Joint with Interbody Fusion Device, Anterior Approach, Anterior Column, Open Approach (ICD-10-PCS; principal; 2017-07-09 07:00)
PROC: 3E0U0GB Introduction of Recombinant Bone Morphogenetic Protein into Joints, Open Approach (ICD-10-PCS; principal; 2017-07-09 07:00)
PROC: 0SB40ZZ Excision of Lumbosacral Disc, Open Approach (ICD-10-PCS; principal; 2017-07-09 07:00)
PROC: 0SG30A0 Fusion of Lumbosacral Joint with Interbody Fusion Device, Anterior Approach, Anterior Column, Open Approach (ICD-10-PCS; principal; 2017-07-09 07:00)
PROC: 0SB20ZZ Excision of Lumbar Vertebral Disc, Open Approach (ICD-10-PCS; principal; 2017-07-09 07:00)
PROC: 4A11X4G Monitoring of Peripheral Nervous Electrical Activity, Intraoperative, External Approach (ICD-10-PCS; principal; 2017-07-09 07:00)
DX: M51.37 Other intervertebral disc degeneration, lumbosacral region (principal); K75.81 Nonalcoholic steatohepatitis (NASH); I10 Essential (primary) hypertension; M51.26 Other intervertebral disc displacement, lumbar region; M51.36 Other intervertebral disc degeneration, lumbar region; M51.27 Other intervertebral disc displacement, lumbosacral region; E66.9 Obesity, unspecified; Z68.32 Body mass index [BMI] 32.0-32.9, adult; G89.18 Other acute postprocedural pain; K76.0 Fatty (change of) liver, not elsewhere classified; R50.9 Fever, unspecified; R11.0 Nausea; R12 Heartburn; T14.90XS Injury, unspecified, sequela; V89.2XXS Person injured in unspecified motor-vehicle accident, traffic, sequela
CPT/HCPCS: 36415; 72020; 76001; 80048; 85025; 86850; 86900; 86901; 87081; 93005; 94003; 94150; J2405; J2710